=== PATIENT | female | born 1985 | race American Indian/Alaskan Native ===

== ENCOUNTER 2021-09-26 12:58 | Emergency (ER) | payer OTHER ==
[2021-09-26 13:22] VITALS: BP 117/71
--- NOTE | 2021-09-26 16:32 | Emergency Department Report ---
ED General Adult HPI - General Chief complaint: Weakness Stated complaint: LUPUS PAIN Time Seen by Provider: 09/26/21 16:27 Source: patient Mode of arrival: Ambulatory Limitations: No Limitations - History of Present Illness Initial comments: 35-year-old morbid obese -Azerbaijani female who is approximately 7 weeks presents to the emergency room complaining of lupus pain for 1 week and concern for a yeast infection. Patient is followed by [facility] in [place]. Patient is 8. She states that she had talked to her child care assistant and they currently have her taken prednisone. She states the Tylenol is not helping much with her pain. She states that she is fully vaccinated. States that she is not concerned for STD. Onset/Timin -: week(s) Severity scale (0 -10): 3 Quality: aching Consistency: constant Improves with: none Worsens with: none Associated Symptoms: denies other symptoms Treatments Prior to Arrival: none - Related Data Allergies Allergy/AdvReac Type Severity Reaction Status Date / Time Iodinated Contrast Media Allergy Unknown Verified 09/26/21 13:19 ED Review of Systems ROS: Stated complaint: LUPUS PAIN Other details as noted in HPI Comment: All other systems reviewed and negative ED Past Medical Hx - Past Medical History Previous Medical History?: Yes Additional medical history: lupus - Surgical History Past Surgical History?: No ED Physical Exam - General Limitations: No Limitations General appearance: alert, in no apparent distress - Head Head exam: Present: atraumatic, normocephalic, normal inspection - Eye Eye exam: Present: normal appearance - ENT ENT exam: Present: mucous membranes moist, normal external ear exam - Neck Neck exam: Present: normal inspection, full ROM - Respiratory Respiratory exam: Present: normal lung sounds bilaterally. Absent: respiratory distress, accessory muscle use - Cardiovascular Cardiovascular Exam: Present: regular rate - GI/Abdominal GI/Abdominal exam: Present: soft. Absent: distended - Extremities Exam Extremities exam: Present: normal inspection, full ROM - Back Exam Back exam: Present: normal inspection, full ROM - Neurological Exam Neurological exam: Present: alert, oriented X3, normal gait - Psychiatric Psychiatric exam: Present: normal affect, normal mood - Skin Skin exam: Present: warm, dry, intact, normal color. Absent: rash ED Course Vital Signs 09/26/21 13:21 Temperature 99.3 F Pulse Rate 77 Respiratory 18 Rate Blood Pressure 117/71 O2 Sat by Pulse 99 Oximetry ED Medical Decision Making - Medical Decision Making 35-year-old morbid obese -Azerbaijani female who is approximately 7 weeks presents to the emergency room complaining of lupus pain for 1 week and concern for a yeast infection. [facility] [place]. Patient is 8. She states that she had talked to her child care assistant and they currently have her taken prednisone. She states the Tylenol is not helping much with her pain. She states that she is fully vaccinated. States that she is not concerned for STD. Riaz with patient she can only take Tylenol. She needs to discuss things with her [facility] [facility] [employer] as they are responsible for this . I reported to patient that Diflucan is category D and is not safe for . Discussed with patient she can take [id number] Monistat if she is concerned for yeast infection. Critical care attestation.: If time is entered above; I have spent that time in minutes in the direct care of this critically ill patient, excluding procedure time. ED Disposition Clinical Impression: Lupus, Yeast infection Disposition: 01 HOME / SELF CARE / HOMELESS Is pt being admited?: No Does the pt Need Aspirin: No Condition: Stable Instructions: Vaginal Yeast Infection, Adult Additional Instructions: Recommend Tylenol and [id number] Monistat. Discussed the patient should follow-up with her [facility] and her child care assistant. She needs to increase her water intake. Referrals: [facility] [Provider Group] - 3-5 Days Forms: Work/School Release Form(ED) Time of Disposition: 16:32
== END 2021-09-26 16:50 | disposition home or self-care (01) ==
LOC: ED 12:58
DX: O98.811 Other maternal infectious and parasitic diseases complicating pregnancy, first trimester (principal); Z3A.01 Less than 8 weeks gestation of pregnancy
CPT/HCPCS: 99282

== ENCOUNTER 2021-10-20 | Emergency (ER) | payer OTHER ==
--- NOTE | 2021-10-20 07:53 | Emergency Department Report ---
ED General Adult HPI - General Chief complaint: Pain General Stated complaint: LUPUS FLARE Time Seen by Provider: 10/20/21 07:49 Source: patient Mode of arrival: Ambulatory Limitations: No Limitations - History of Present Illness Initial comments: 36-year-old -Iranian female presents to the emergency room complaining of a lupus flareup. Patient states that she is currently on Plaquenil. She has lower back pain. She states that usually she takes Tylenol with her lupus flareup but did not take any. Patient reports that she is 8 weeks is followed by [facility] in [place]. She reports she has had her ultrasound done through them. She denies any vaginal bleeding no vaginal discharge no pelvic pain no abdominal pain. Denies any chest pain or shortness of breath. She complains of a dark spot on her right foot between her third and fourth digit. Patient has 2 big bags of clothing items. -: During the night Location: back Severity scale (0 -10): 1 Quality: aching Consistency: intermittent Improves with: none Worsens with: none Associated Symptoms: denies other symptoms. denies: chest pain, cough, diaphoresis, fever/chills, headaches, loss of appetite, nausea/vomiting, shortness of breath, weakness Treatments Prior to Arrival: none - Related Data Allergies Allergy/AdvReac Type Severity Reaction Status Date / Time Iodinated Contrast Media Allergy Unknown Verified 09/26/21 13:19 ED Review of Systems ROS: Stated complaint: LUPUS FLARE Other details as noted in HPI Comment: All other systems reviewed and negative ED Past Medical Hx - Past Medical History Previous Medical History?: Yes Hx Asthma: Yes Additional medical history: lupus ED Physical Exam - General Limitations: No Limitations General appearance: alert, in no apparent distress, obese, other (Has to be trash bags full of clothing items) - Head Head exam: Present: atraumatic, normocephalic - Eye Eye exam: Present: normal appearance - ENT ENT exam: Present: mucous membranes moist, normal external ear exam - Respiratory Respiratory exam: Present: normal lung sounds bilaterally. Absent: respiratory distress, accessory muscle use - Cardiovascular Cardiovascular Exam: Present: regular rate - GI/Abdominal GI/Abdominal exam: Present: soft. Absent: distended - Back Exam Back exam: Present: normal inspection, full ROM. Absent: muscle spasm, paraspinal tenderness, vertebral tenderness - Neurological Exam Neurological exam: Present: alert, oriented X3, normal gait - Psychiatric Psychiatric exam: Present: normal affect, normal mood - Skin Skin exam: Present: warm, dry, intact, normal color, rash (Butterfly rash on face) ED Course Vital Signs 10/20/21 07:33 Temperature 99.7 F H Pulse Rate 84 Respiratory 16 Rate Blood Pressure 112/79 [Right] O2 Sat by Pulse 98 Oximetry ED Medical Decision Making - Medical Decision Making 36-year-old -Iranian female presents to the emergency room complaining of a lupus flareup. Patient states that she is currently on Plaquenil. She has lower back pain. She states that usually she takes Tylenol with her lupus flareup but did not take any. Patient reports that she is 8 weeks is [facility] in [place]. She reports she has had her ultrasound done through them. She denies any vaginal bleeding no vaginal discharge no pelvic pain no abdominal pain. Denies any chest pain or shortness of breath. She complains of a dark spot on her right foot between her third and fourth digit. Patient has 2 big bags of clothing items. Patient has a normal examination. Discussed with patient to continue with her Plaquenil take some Tylenol for any discomfort or pain. Increase your fluid intake. Follow-up with her primary care provider. Critical care attestation.: If time is entered above; I have spent that time in minutes in the direct care of this critically ill patient, excluding procedure time. ED Disposition Clinical Impression: Lupus, Back pain during in first trimester, TP (tinea pedis) Disposition: HOME / SELF CARE / HOMELESS Is pt being admited?: No Does the pt Need Aspirin: No Condition: Stable Instructions: Athlete's Foot, [id number], Acute Back Pain, Adult Additional Instructions: Recommend continue with your Plaquenil. Tylenol for pain. Increase your fluids. Follow-up with your [facility]. Referrals: [facility] [Provider Group] - 3-5 Days Forms: Work/School Release Form(ED) Time of Disposition: 07:59
[2021-10-20 08:41] VITALS: BP 115/71
== END 2021-10-20 08:42 | disposition home or self-care (01) ==
LOC: ED
DX: O26.891 Other specified pregnancy related conditions, first trimester (principal); M54.50 Low back pain, unspecified; M32.9 Systemic lupus erythematosus, unspecified; B35.3 Tinea pedis; Z3A.08 8 weeks gestation of pregnancy; J45.909 Unspecified asthma, uncomplicated; Z91.09 Other allergy status, other than to drugs and biological substances
CPT/HCPCS: 99282